=== PATIENT | female | born 1995 | race Caucasian/White ===

== ENCOUNTER 2022-07-10 11:45 | Observation (INO) | payer OTHER, MEDICAID ==
[~2022-07-10] VITALS: Ht 162.6 cm; Wt 78.5 kg
[2022-07-10] MEDS ORDERED: PNV1TABL76 PO (14:42)
== END 2022-07-10 15:15 | disposition home or self-care (01) ==
LOC: 8 EST LDRP 11:45
PROVIDERS: ADMIT Obstetrics & Gynecology; ATTEND Obstetrics & Gynecology
DX: O44.43 Low lying placenta NOS or without hemorrhage, third trimester (principal); Z3A.39 39 weeks gestation of pregnancy
CPT/HCPCS: 59025; 76805; 76818; G0378

== ENCOUNTER 2022-07-21 22:48 | Inpatient (IN) | payer OTHER, MEDICAID ==
[~2022-07-21] VITALS: Ht 162.6 cm; Wt 78.9 kg
[~2022-07-21 22:48] MED LIST: PNV1TABL76 PO
[2022-07-22] MEDS ORDERED: NALOXONE HCL 0.4 MG/ML 1ML VIAL IM PRN (00:15)
[2022-07-22] MEDS ORDERED: BUTORPHANOL TARTRATE 1 MG/ML VIAL IV PRN (00:15)
[2022-07-22] MEDS ORDERED: METHYLERGONOVINE MALEATE 0.2 MG/ML IM PRN ×2 (00:15→13:15)
[2022-07-22] MEDS ORDERED: CARBOPROST TROMETHAMINE 250 MCG/ML AMPUL IM PRN (00:15)
[2022-07-22] MEDS ORDERED: LIDOCAINE HCL 1% 20ML VIAL (Pyxis) INJ INFIL SCH (00:15)
[2022-07-22] MEDS ORDERED: RHO(D) IMMUNE GLOBULIN 300 MCG/SYR IM NR (00:15)
[2022-07-22] MEDS ORDERED: OXYTOCIN 30 UNITS/500ML NS PMX 500 ML IV SCH (00:15)
[2022-07-22 01:49] LABS: BASOPHILS % 0.2 % (0.0-2.0); EOSINOPHILS % 1.3 % (0.0-5.0); HEMATOCRIT. 37.6 % (36.0-48.0); LYMPHOCYTES % 23.7 % (20.0-50.0); MEAN CORPUSCULAR VOLUME 95.1 fL (81.0-99.0); MEAN PLATELET VOLUME 10.1 fl (7.4-10.4); MONOCYTES % 6.5 % (2.0-8.0); NEUTROPHILS % 68.3 % (40.0-76.0); PLATELET 151 x1000/uL (130-400); RED BLOOD CELL COUNT 3.95 mill/uL (4.2-5.4); RED CELL DISTRIBUTION WIDTH 13.3 % (11.6-14.6)
[2022-07-22 01:54] LABS: CLARITY URINE CLEAR (CLEAR); COLOR URINE YELLOW (YELLOW); KETONES URINE NEGATIVE (NEGATIVE); LEUKOCYTE ESTERASE URINE 2+ (NEGATIVE); NITRITE URINE NEGATIVE (NEGATIVE); OCCULT BLOOD URINE NEGATIVE (NEGATIVE); PROTEIN URINE NEGATIVE (NEGATIVE); SPECIFIC GRAVITY URINE 1.009 (1.005-1.030); UROBILINOGEN URINE 0.2 E.U./dL (0.2-1.0)
[2022-07-22 02:00] LABS: INR 0.9; PARTIAL THROMBOPLASTIN TIME 27.6 sec (23.4-31.0); PROTHROMBIN TIME 9.8 sec (9.6-11.0)
[2022-07-22] MEDS: LACTATED RINGERS 1,000 ML IV SCH ×3 (02:43→09:33)
[2022-07-22] MEDS: MISOPROSTOL 100MCG TABLET VG SCH ×2 (02:43→06:49)
[2022-07-22] MEDS ORDERED: LIDOCAINE HCL 2%/EPINEPHRINE 1:100,000 20 ML VIAL INFIL ONE (07:00)
[2022-07-22] MEDS ORDERED: ROPIVACAINE HCL/PF EPIDURAL 200 ML EPI ONE (09:51)
[2022-07-22] MEDS ORDERED: ROPIVACAINE HCL/PF EPIDURAL 200 ML EPI NR (09:51)
[2022-07-22] MEDS ORDERED: IBUPROFEN 400MG TABLET PO PRN (13:15)
[2022-07-22] MEDS ORDERED: GLYCERIN/WITCH HAZEL LEAF MEDICATED PAD TOP PRN (13:15)
[2022-07-22] MEDS ORDERED: BENZOCAINE/LANOLIN/ALOE VERA SPRAY TOP PRN (13:15)
[2022-07-22] MEDS ORDERED: LANOLIN OINT 7GM TUBE TOP PRN (13:15)
[2022-07-22] MEDS ORDERED: DIPHENHYDRAMINE 25MG CAPSULE PO PRN (13:15)
[2022-07-22] MEDS ORDERED: BISACODYL 10MG SUPP PR PRN (13:15)
[2022-07-22] MEDS ORDERED: RHO(D) IMMUNE GLOBULIN 300 MCG/SYR IM PRN (13:15)
[2022-07-22] MEDS ORDERED: HEMORRHOIDAL SUPP PR PRN (13:15)
[2022-07-22] MEDS ORDERED: OXYCODONE HCL/ACETAMINOPHEN 5/325MG TABLET PO PRN (13:15)
[2022-07-22] MEDS: OXYTOCIN 30 UNITS/500ML NS PMX 500 ML IV SCH ×2 (14:53→14:55)
[2022-07-22 15:35] VITALS: BP 113/60
[2022-07-22] MEDS: IBUPROFEN 800MG TABLET PO PRN (15:58)
[2022-07-22 16:40] VITALS: BP 123/76
[2022-07-22 20:00] VITALS: BP 111/58
[2022-07-22] MEDS: SIMETHICONE 80MG TABLET CHEW PO SCH (21:08)
[2022-07-22] MEDS: DOCUSATE SODIUM 100MG CAPSULE PO SCH (21:08)
[2022-07-22] MEDS: MAGNESIUM/ALUMINUM HYDROXIDE/SIMETHICONE 30ML UDC PO SCH (21:08)
[2022-07-23 03:55] VITALS: BP 105/56
[2022-07-23] MEDS: IBUPROFEN 800MG TABLET PO PRN ×2 (05:01→21:10)
[2022-07-23 06:57] LABS: BASOPHILS % 0.2 % (0.0-2.0); EOSINOPHILS % 0.9 % (0.0-5.0); HEMATOCRIT. 29.3 % (36.0-48.0); HEMOGLOBIN. 10.2 g/dL (12.0-16.0); LYMPHOCYTES % 23.6 % (20.0-50.0); MEAN CORPUSCULAR VOLUME 94.9 fL (81.0-99.0); MONOCYTES % 5.2 % (2.0-8.0); NEUTROPHILS % 70.1 % (40.0-76.0); PLATELET 120 x1000/uL (130-400); RED BLOOD CELL COUNT 3.09 mill/uL (4.2-5.4); RED CELL DISTRIBUTION WIDTH 13.6 % (11.6-14.6)
[2022-07-23] MEDS: MAGNESIUM/ALUMINUM HYDROXIDE/SIMETHICONE 30ML UDC PO SCH ×5 (07:30→20:09)
[2022-07-23] MEDS: FERROUS SULFATE 325MG TABLET PO SCH ×2 (07:30→12:30)
[2022-07-23] MEDS: SIMETHICONE 80MG TABLET CHEW PO SCH ×5 (08:00→20:09)
[2022-07-23] MEDS: PRENATAL VIT/FE FUMARATE/FA TABLET PO SCH (09:51)
[2022-07-23 11:00] VITALS: BP 117/63
[2022-07-23 20:00] VITALS: BP 115/61
[2022-07-23] MEDS: DOCUSATE SODIUM 100MG CAPSULE PO SCH (20:09)
[2022-07-24 04:15] VITALS: BP 111/68
[2022-07-24] MEDS ORDERED: IBUP-2030 PO (05:35)
[2022-07-24 07:30] VITALS: BP 105/61
[2022-07-24] MEDS: MAGNESIUM/ALUMINUM HYDROXIDE/SIMETHICONE 30ML UDC PO SCH (07:30)
[2022-07-24] MEDS: SIMETHICONE 80MG TABLET CHEW PO SCH (07:40)
[2022-07-24] MEDS: FERROUS SULFATE 325MG TABLET PO SCH (07:55)
[2022-07-24] MEDS: PRENATAL VIT/FE FUMARATE/FA TABLET PO SCH (07:55)
== END 2022-07-24 11:10 | disposition home or self-care (01) | DRG 807 ==
LOC: OBSVTOIN 22:48 → 8 EST LDRP 22:48 → 8EST 07-22 15:15
PROVIDERS: ADMIT Obstetrics & Gynecology; ATTEND Obstetrics & Gynecology
PROC: 10E0XZZ Delivery of Products of Conception, External Approach (ICD-10-PCS; principal; 2022-07-22)
PROC: 3E0R3BZ Introduction of Anesthetic Agent into Spinal Canal, Percutaneous Approach (ICD-10-PCS; 2022-07-22)
PROC: 00HU33Z Insertion of Infusion Device into Spinal Canal, Percutaneous Approach (ICD-10-PCS; 2022-07-22)
DX: O77.0 Labor and delivery complicated by meconium in amniotic fluid (principal); Z37.0 Single live birth; Z3A.40 40 weeks gestation of pregnancy; Z20.822 Contact with and (suspected) exposure to COVID-19
CPT/HCPCS: 36415; 80305; 81003; 85025; 85384; 86592; 86703; 86762; 86850; 86900; 87340; 87426; 99281; G0378; J2795; J3490; J7120; J2590